=== PATIENT | female | born 1990 | race Caucasian/White ===

== ENCOUNTER 2017-10-23 03:32 | Emergency (ER) | payer MEDICAID ==
[~2017-10-23] VITALS: Ht 157.5 cm; Wt 66.9 kg
[2017-10-23 03:40] VITALS: Ht 157.5 cm; Wt 66.9 kg
[2017-10-23 05:18] LABS: BASOPHIL % 0.4 % (0-2); PLATELET COUNT 234 x10^3mcL (130-400)
[2017-10-23 05:24] LABS: RED CELL DISTRIBUTION WIDTH 15.9 % (11.5-14.5)
[2017-10-23 05:30] LABS: UA SPECIFIC GRAVITY <=1.005 (1.005-1.035); microscopic required? YES; urine erythrocyte 3+ (NEGATIVE)
[2017-10-23 05:58] VITALS: BP 117/70
== END 2017-10-23 06:39 | disposition home or self-care (01) ==
LOC: ED 03:32 → EDBD 03:32 → ED 06:39
PROVIDERS: Emergency Medicine Emergency Medical Services
DX: O20.0 Threatened abortion (principal); Z3A.14 14 weeks gestation of pregnancy